=== PATIENT | female | born 1940 | race Caucasian/White ===

== ENCOUNTER 2019-05-07 22:27 | Inpatient (IN) | payer MEDICARE, OTHER ==
[~2019-05-07] VITALS: Ht 162.6 cm; Wt 59.4 kg
--- NOTE | 2019-05-07 22:47 | NUR ---
PT [id number] FROM HOME C/O FEVER/ALTERED MENTAL STATUS/VOMITING AND FREQUENT URINATION. PT AXO4. RESPIRATIONS EVEN AND UNLABORED. PT PUT ON THE APPLICATION PACKAGING CONSULTANT AND PULSE OX. PENDING EVAL FROM ER .
[2019-05-07 23:06] LABS: BASOPHILS % (AUTO) 0.2 % (0.0-2.0); HEMATOCRIT 41 % (33-45); HEMOGLOBIN 13.8 g/dL (11.5-14.8); LYMPHOCYTES # (AUTO) 0.4 /CMM (0.8-4.8); LYMPHOCYTES % (AUTO) 2.7 % (20.0-44.0); MEAN CORPUSCULAR HGB CONC 34 g/dl (31.0-36.0); MEAN CORPUSCULAR VOLUME 98 fL (82-100); MONOCYTES # (AUTO) 0.9 /CMM (0.1-1.30); MONOCYTES % (AUTO) 6.3 % (2.0-12.0); NEUTROPHILS # (AUTO) 12.6 /CMM (1.8-8.9); NEUTROPHILS % (AUTO) 90.8 % (43.0-81.0); PLATELET COUNT (AUTO) 228 /CMM (150-450); RED BLOOD CELL COUNT(AUTO) 4.15 MIL/uL (4.0-5.2); WHITE BLOOD COUNT (AUTO) 13.9 K/uL (4.3-11.0)
[2019-05-07 23:16] LABS: CALCIUM, SERUM 9.3 mg/dL (8.5-10.1); CARBON DIOXIDE 28 mmol/L (21-32); CHLORIDE 98 mmol/L (98-107); CREATININE 0.9 mg/dL (0.6-1.3); GLUCOSE 98 mg/dL (74-106); POTASSIUM 3.8 mmol/L (3.5-5.1); SODIUM SERUM 135 mmol/L (136-145); UREA NITROGEN, BLOOD 22 mg/dL (7-18)
--- NOTE | 2019-05-07 23:18 | NUR ---
PT TAKEN TO CT [facility]IA [facility].
[2019-05-07 23:26] LABS: APPEARANCE,URINE Cloudy (CLEAR); BILIRUBIN,URINE Negative (NEGATIVE); BLOOD, URINE Moderate Ery/uL (NEGATIVE); COLOR,URINE Yellow (YELLOW); KETONES,URINE Negative (NEGATIVE); LEUKOCYTE ESTERASE ,URINE Large (NEGATIVE); NITRITE, URINE Negative (NEGATIVE); PH,URINE 8.5 (5.0-8.0); PROTEIN,URINE 30 mg/dl (NEGATIVE); UGLUCOSE Negative (NEGATIVE); UROBILINOGEN,URINE 0.2 EU/dL (0.2)
[2019-05-07 23:27] LABS: ALANINE AMINOTRANSFERASE 16 U/L (12-78); ALBUMIN 3.2 g/dL (3.4-5.0); ALKALINE PHOSPHATASE 79 U/L (46-116); ASPARTATE AMINOTRANSFERASE 13 U/L (15-37); BILIRUBIN,DIRECT 0.1 mg/dL (0.0-0.2); BILIRUBIN,TOTAL 0.4 mg/dL (0.2-1.0); TOTAL PROTEIN, SERUM 6.9 g/dL (6.4-8.2)
--- NOTE | 2019-05-07 23:31 | NUR ---
PT RETURNED FROM [facility]IA [facility].
[2019-05-07 23:35] LABS: BACTERIA,URINE Rare /HPF (None Seen); SQUAMOUS EPITHELIAL CELL,UR Moderate /HPF (None Seen); WBC,URINE 51-80 /HPF (0-3)
[2019-05-07] MEDS ORDERED: LEVOFLOXACIN 750 MG /D5W 150ML 150 ML IV ONE (23:43)
[2019-05-08] MEDS ORDERED: LEVOFLOXACIN 750 MG /D5W 150ML PIGGYBACK IV ONE
--- NOTE | 2019-05-08 00:03 | NUR ---
TELE BED ASSIGNMENT: 328-2
--- NOTE | 2019-05-08 00:37 | NUR ---
REPORT GIVEN TO PEDRITO TEJEDA FOR IVET.
[2019-05-08 00:46] VITALS: BP 95/55
[2019-05-08 00:48] VITALS: BP 95/55
--- NOTE | 2019-05-08 00:50 | NUR ---
TELE/LONG FILLER CIGAR ROLLER MACHINE NOTES PATIENT ARRIVED ON THE UNIT AT 0046 VIA GURNEY. FEMALE. A/O X 3. FULL CODE. VS UPON ADMISSION: 95/55, P80, RESPIRATIONS 19, TEMP 98.2, O2 SAT 98%. CAREGIVER BILLIE AT BEDSIDE. BILLIE ABLE TO GIVE ME HOME MEDS. NO SIGNS OF RESPIRATORY DISTRESS. DENIES SOB. NO COMPLAINTS OF CHEST PAIN, N/V AT THIS TIME. DENIES PAIN AT THIS TIME. SKIN INTACT. PATIENT ONLY HAS STITCHES FROM A PREVIOUS FALL, IT IS HEALING. SAFETY PRECAUTIONS IMPLEMENTED; CALL LIGHT WITHIN REACH, BED LOW, BED LOCKED, SIDE RAILS UP X2. WILL CONTINUE TO MONITOR.
[2019-05-08] MEDS ORDERED: TEMAZEPAM 15 MG CAPSULE PO PRN (01:00)
[2019-05-08] MEDS ORDERED: ONDANSETRON HCL/PF 4 MG/2 ML VIAL IVP PRN (01:00)
[2019-05-08] MEDS ORDERED: MORPHINE SULFATE INJ 2 MG/ML DISP.SYRIN IV PRN (01:00)
[2019-05-08] MEDS ORDERED: MAG HYDROX/AL HYDROX/SIMETH 30 ML UDC PO PRN (01:00)
[2019-05-08] MEDS ORDERED: HYDROCODONE/APAP 5/325MG 1 EACH TABLET PO PRN (01:00)
[2019-05-08] MEDS ORDERED: ACETAMINOPHEN 325 MG TABLET PO PRN (01:00)
[2019-05-08] MEDS ORDERED: MAGNESIUM HYDROXIDE 30 ML UDC PO PRN (01:00)
[2019-05-08] MEDS ORDERED: DILT240C88 PO (01:48)
[2019-05-08] MEDS ORDERED: METO25TA20 PO (01:50)
[2019-05-08] MEDS ORDERED: ESCI20TA PO (01:51)
[2019-05-08] MEDS ORDERED: TRAV5DRO EACHEYE (01:52)
[2019-05-08] MEDS ORDERED: DIVA500T2 PO (01:52)
[2019-05-08] MEDS ORDERED: CLON0.5T PO (01:54)
[2019-05-08 02:05] VITALS: BP 102/51
[2019-05-08] MEDS: IV NS 0.9% 1,000 ML IV PRN ×2 (02:06→15:39)
--- NOTE | 2019-05-08 02:07 | NUR ---
MS/RN NOTES PER APPLICATIONS INSTRUCTOR, EDSON, HOME MEDS TO BE RECONCILED IN THE AM. WILL PASS ON INFORMATION TO AM NURSE.
--- NOTE | 2019-05-08 06:40 | NUR ---
MS/RN CLOSING NOTES PATIENT IS ASLEEP RESTING COMFORTABLY IN BED. PATIENT ABLE TO MAKE NEEDS KNOWN. PATIENT IS STABLE AT THIS TIME. NO SIGNS OF RESPIRATORY DISTRESS. DENIES SOB. DENIES PAIN OR DISCOMFORT AT THIS TIME. PATIENT IS AFEBRILE. IV SITE: LAC #18G INTACT AND PATENT WITH NS RUNNING AT 75 ML/HR, NO INFILTRATION, NO INFECTION NOTED. SAFETY PRECAUTIONS IMPLEMENTED; CALL LIGHT WITHIN REACH, BED LOWEST POSITION, BED LOCKED, SIDE RAILS UP X2. ALL NEEDS ATTENDED TO AT THIS TIME. WILL ENDORSE TO AM NURSE FOR CONTINUITY OF CARE.
--- NOTE | 2019-05-08 07:26 | NUR ---
RN OPENING NOTE PT WAS RECEIVED IN BED AT LOWEST AND LOCKED POSITION WITH SIDE RAILS UPX2, A/O X3-4 BREATHING EVEN AND UNLABORED ON RA, NO CURRENT COMPLAINTS OR S/S OF ANY DISTRESS OR PAIN NOTED AT THIS TIME. IV IS PATENT AND INTACT WITH IVF INFUSING, PER NIGHT RN MED RECONCILIATION NEEDS TO BE DONE, INFORMED BY RN THAT PT IS NONAMBULATORY AND USED WALKER/WHEELCAHIR TO GET AROUND. SAFETY PRECAUTIONS IN PLACE, CALL LIGHT WITHIN REACH, WILL MONITOR PT ACCORDINGLY
[2019-05-08 07:46] LABS: MAGNESIUM 1.8 mg/dL (1.8-2.4); PHOSPHORUS 3.6 mg/dL (2.5-4.9)
[2019-05-08 08:00] VITALS: BP 107/61
[2019-05-08] MEDS ORDERED: METO-356 PO (08:39)
[2019-05-08] MEDS: DILTIAZEM HCL CD 240 MG PO SCH (13:11)
[2019-05-08] MEDS: ESCITALOPRAM OXALATE (10 MG) 10 MG TABLET PO SCH (13:11)
[2019-05-08] MEDS: METOPROLOL SUCCINATE 25 MG TAB.SR.24H PO SCH (13:12)
[2019-05-08 15:30] VITALS: BP 130/63
--- NOTE | 2019-05-08 18:18 | NUR ---
RN CLOSING NOTE PT IN BED IN LOWEST AND LOCKED POSITION WITH SIDE RAILS UP X2, A/O X2 BREATHING EVEN AND UNLABORED ON RA WITH NO S/S OF ANY DISTRESS OR PAIN NOTED AT THIS TIME, IV IS PATENT AND INTACT WITH IVF RUNNING, SAFETY PRECAUTIONS IN PLACE, CALL LIGHT WITHIN REACH, ALL NEEDS ATTENDED TO THROUGHOUT SHIFT, WILL ENDORSE TO NIGHT RN FOR IVET.
[2019-05-08 20:00] VITALS: BP 148/61
[2019-05-08] MEDS: DIVALPROEX SODIUM 500 MG TABLET.DR PO SCH (21:13)
[2019-05-08] MEDS: LATANOPROST EYE DROP 0.005% 2.5 ML BOTTLE EACHEYE SCH (21:13)
[2019-05-08] MEDS: clonazePAM 0.5 MG TABLET PO SCH (21:15)
--- NOTE | 2019-05-09 07:17 | NUR ---
RN OPENING NOTE PT WAS RECEIVED IN BED AT LOWEST AND LOCKED POSITION WITH SIDE RAILS UPX2, A/O X3-4 BREATHING EVEN AND UNLABORED ON RA, NO CURRENT COMPLAINTS OR S/S OF ANY DISTRESS OR PAIN NOTED AT THIS TIME. IV IS PATENT AND INTACT WITH IVF INFUSING, SAFETY PRECAUTIONS IN PLACE, CALL LIGHT WITHIN REACH, WILL MONITOR PT ACCORDINGLY
[2019-05-09 07:22] LABS: BASOPHILS % (AUTO) 0.3 % (0.0-2.0); EOSINOPHILS % (AUTO) 0.9 % (0.0-6.0); HEMATOCRIT 39 % (33-45); HEMOGLOBIN 13.1 g/dL (11.5-14.8); LYMPHOCYTES # (AUTO) 1.5 /CMM (0.8-4.8); LYMPHOCYTES % (AUTO) 11.7 % (20.0-44.0); MEAN CORPUSCULAR HGB CONC 33 g/dl (31.0-36.0); MEAN CORPUSCULAR VOLUME 98 fL (82-100); MONOCYTES # (AUTO) 1.8 /CMM (0.1-1.30); MONOCYTES % (AUTO) 13.8 % (2.0-12.0); NEUTROPHILS # (AUTO) 9.5 /CMM (1.8-8.9); NEUTROPHILS % (AUTO) 73.3 % (43.0-81.0); PLATELET COUNT (AUTO) 225 /CMM (150-450); RED BLOOD CELL COUNT(AUTO) 3.98 MIL/uL (4.0-5.2); WHITE BLOOD COUNT (AUTO) 12.9 K/uL (4.3-11.0)
[2019-05-09 07:25] LABS: CALCIUM, SERUM 8.7 mg/dL (8.5-10.1); CARBON DIOXIDE 27 mmol/L (21-32); CHLORIDE 103 mmol/L (98-107); CREATININE 0.6 mg/dL (0.6-1.3); GLUCOSE 88 mg/dL (74-106); POTASSIUM 4.7 mmol/L (3.5-5.1); SODIUM SERUM 136 mmol/L (136-145); UREA NITROGEN, BLOOD 11 mg/dL (7-18)
[2019-05-09 08:00] VITALS: BP 137/68
[2019-05-09] MEDS: ESCITALOPRAM OXALATE (10 MG) 10 MG TABLET PO SCH (08:18)
[2019-05-09] MEDS: DILTIAZEM HCL CD 240 MG PO SCH (08:19)
[2019-05-09] MEDS: METOPROLOL SUCCINATE 25 MG TAB.SR.24H PO SCH (08:19)
[2019-05-09 16:00] VITALS: BP 135/63
--- NOTE | 2019-05-09 18:41 | NUR ---
RN CLOSING NOTE PT IN BED IN LOWEST AND LOCKED POSITION WITH SIDE RAILS UP X2, A/O X2 BREATHING EVEN AND UNLABORED ON RA WITH NO S/S OF ANY DISTRESS OR PAIN, IV IS PATENT AND INTACT, SAFETY PRECAUTIONS IN PLACE, CALL LIGHT WITHIN REACH, ALL NEEDS ATTENDED TO THROUGHOUT SHIFT, WILL ENDORSE TO NIGHT RN FOR IVET.
[2019-05-09 20:00] VITALS: BP 137/72
[2019-05-09] MEDS: LEVOFLOXACIN 250 MG /D5W 50 ML 250 MG in PREMIX 1 EA IV SCH (21:21)
[2019-05-09] MEDS: DIVALPROEX SODIUM 500 MG TABLET.DR PO SCH (21:22)
[2019-05-09] MEDS: clonazePAM 0.5 MG TABLET PO SCH (21:22)
[2019-05-09] MEDS: LATANOPROST EYE DROP 0.005% 2.5 ML BOTTLE EACHEYE SCH (21:22)
[2019-05-09] MEDS: IV NS 0.9% 1,000 ML IV PRN (22:32)
[2019-05-10 06:22] LABS: CALCIUM, SERUM 9.1 mg/dL (8.5-10.1); CARBON DIOXIDE 26 mmol/L (21-32); CHLORIDE 102 mmol/L (98-107); CREATININE 0.7 mg/dL (0.6-1.3); GLUCOSE 92 mg/dL (74-106); MAGNESIUM 1.9 mg/dL (1.8-2.4); SODIUM SERUM 135 mmol/L (136-145); UREA NITROGEN, BLOOD 11 mg/dL (7-18)
[2019-05-10 06:32] LABS: THYROID STIMULATING HORMONE 2.227 uIU/mL (0.358-3.74)
[2019-05-10 08:00] VITALS: BP 134/76
--- NOTE | 2019-05-10 08:00 | NUR ---
MS RN OPENING NOTES Received Patient resting and asleep in bed. A/O x 2-3 with episodes of forgetfulness. VS stable with no acute distress. Breathing even and unlabored on room air with no respiratory distress. No signs and symptoms of pain. 18g PIV on LAC clean, dry, intact and flushing well with NS running at 75ml/hr. Safety precautions in place. Bed locked and set to lowest position with side rails x 2 up. Will continue to monitor.
[2019-05-10] MEDS: DILTIAZEM HCL CD 240 MG PO SCH (08:54)
[2019-05-10] MEDS: ESCITALOPRAM OXALATE (10 MG) 10 MG TABLET PO SCH (08:54)
[2019-05-10] MEDS: METOPROLOL SUCCINATE 25 MG TAB.SR.24H PO SCH (08:54)
[2019-05-10 16:00] VITALS: BP 143/73
--- NOTE | 2019-05-10 19:00 | NUR ---
RN medsurg opening notes Received Pt from morning nurse. Pt is resting in bed comfortably. Pt is alert and oriented x3. Respiration is normal. No SOB. No nausea or vomiting. Pt denies any pain or discomfort. IV sites at LAC #18 is clean, intact, patent and infusing well NS at 75ml/hr. Safety precautions is maintained. Seizure precautions is maintained. Instructed to call for assistance. Bed at low position, brakes locked, side rails up X2 and call light is within reach. Will continue to monitor and assists all needs.
--- NOTE | 2019-05-10 19:15 | NUR ---
MS RN CLOSING NOTES Patient resting and watching TV in bed. A/O x 2-3 with episodes of forgetfulness. VS stable with no acute distress. Breathing even and unlabored on room air with no respiratory distress. No signs and symptoms of pain. 18g PIV on LAC clean, dry, intact and flushing well with NS running at 75ml/hr. Safety precautions in place. Bed locked and set to lowest position with side rails x 2 up. Call light within reach. All needs rendered at this time. Will endorse plan of care to oncoming shift.
[2019-05-10 20:00] VITALS: BP 141/69
[2019-05-10] MEDS: DIVALPROEX SODIUM 500 MG TABLET.DR PO SCH (21:08)
[2019-05-10] MEDS: LEVOFLOXACIN 250 MG /D5W 50 ML 250 MG in PREMIX 1 EA IV SCH (21:08)
[2019-05-10] MEDS: LATANOPROST EYE DROP 0.005% 2.5 ML BOTTLE EACHEYE SCH (21:08)
[2019-05-10] MEDS: clonazePAM 0.5 MG TABLET PO SCH (21:08)
[2019-05-11] MEDS: IV NS 0.9% 1,000 ML IV PRN (02:33)
[2019-05-11 06:41] LABS: BASOPHILS % (AUTO) 0.6 % (0.0-2.0); EOSINOPHILS % (AUTO) 2.7 % (0.0-6.0); HEMATOCRIT 40 % (33-45); HEMOGLOBIN 13.5 g/dL (11.5-14.8); LYMPHOCYTES # (AUTO) 1.6 /CMM (0.8-4.8); LYMPHOCYTES % (AUTO) 23.3 % (20.0-44.0); MEAN CORPUSCULAR HGB CONC 34 g/dl (31.0-36.0); MEAN CORPUSCULAR VOLUME 98 fL (82-100); MONOCYTES % (AUTO) 14.9 % (2.0-12.0); NEUTROPHILS % (AUTO) 58.5 % (43.0-81.0); PLATELET COUNT (AUTO) 282 /CMM (150-450); WHITE BLOOD COUNT (AUTO) 6.8 K/uL (4.3-11.0)
--- NOTE | 2019-05-11 06:53 | NUR ---
RN medsurg closing notes Pt is alert and oriented X2-3, easily forgetful. Pt is sleeping in bed comfortably. Awaken easily. No SOB. No nausea or vomiting. No S/S of distress noted. IV sites at L AC is clean, intact, and patent. Routine meds were given as ordered. All needs met and attended. Kept Pt warm and comfortable. Safety precautions is maintained. Seizure precautions is maintained. Instructed to call. Bed at low position, brakes locked, side rails upX2 and call light is within reach. Will endorse to morning nurse for IVET
[2019-05-11 07:07] LABS: CALCIUM, SERUM 8.9 mg/dL (8.5-10.1); CARBON DIOXIDE 26 mmol/L (21-32); CHLORIDE 103 mmol/L (98-107); CREATININE 0.7 mg/dL (0.6-1.3); GLUCOSE 86 mg/dL (74-106); MAGNESIUM 1.8 mg/dL (1.8-2.4); PHOSPHORUS 3.7 mg/dL (2.5-4.9); SODIUM SERUM 137 mmol/L (136-145); UREA NITROGEN, BLOOD 14 mg/dL (7-18)
--- NOTE | 2019-05-11 07:50 | NUR ---
m/s repair service clerk: notes called epic at 0740 and was on hold for a couple of times and finally cager operator crab picker the call and maxime espinoza ([facility]) was paged re: critical labs. Addendum: 05/11/19 at 0752 by LUIS ANDREWSN above charting, karen pt
[2019-05-11 08:00] VITALS: BP 133/80
--- NOTE | 2019-05-11 09:00 | NUR ---
m/s dietary services manager: md visit seen and examined by dr. hwang at this time. pt for discharge home today per md. awaiting for order. pt aware.
[2019-05-11] MEDS: ESCITALOPRAM OXALATE (10 MG) 10 MG TABLET PO SCH (09:20)
[2019-05-11 09:21] VITALS: BP 133/80
[2019-05-11] MEDS: METOPROLOL SUCCINATE 25 MG TAB.SR.24H PO SCH (09:21)
[2019-05-11] MEDS: DILTIAZEM HCL CD 240 MG PO SCH (09:21)
--- NOTE | 2019-05-11 10:00 | NUR ---
m/s enrobing machine operator: notes lyle (dpoa) here and will come back to bring clothes to bring her home.
[2019-05-11] MEDS ORDERED: Levofloxacin (250MG) PO (10:41)
--- NOTE | 2019-05-11 11:00 | NUR ---
m/s cement mason maintenance: notes received order to discharge pt home. order acknowledged.
--- NOTE | 2019-05-11 11:15 | NUR ---
m/s agile scrum coach: d'c instructions discharge instructions given to lyle (leigh) and verbalized understanding. h/l removed with tip intact. prescription for levaquin 250mg po daily x 4 days called in to [facility], spoke to daphne (pharmacist). all belongings returned to pt. all meds reviewed with lyle (leigh).
--- NOTE | 2019-05-11 11:25 | NUR ---
m/s ending machine operator: discharged discharged home in stable condition with all d'c papers and valuables.
[2019-05-11] MEDS ORDERED: LEVOFLOXACIN (250MG) 250 MG TABLET PO SCH (21:00)
== END 2019-05-11 13:00 | disposition home or self-care (01) | DRG 689 ==
LOC: ER 22:36 → TELE 05-08 00:35 → MED 05-08 01:52
PROVIDERS: ADMIT Internal Medicine; ATTEND Internal Medicine
DX: N39.0 Urinary tract infection, site not specified (principal); G93.41 Metabolic encephalopathy; G91.9 Hydrocephalus, unspecified; K21.9 Gastro-esophageal reflux disease without esophagitis; E78.5 Hyperlipidemia, unspecified; H40.9 Unspecified glaucoma; G20 Parkinson's disease; Z98.2 Presence of cerebrospinal fluid drainage device; Z86.73 Personal history of transient ischemic attack (TIA), and cerebral infarction without residual deficits; I10 Essential (primary) hypertension; F32.9 Major depressive disorder, single episode, unspecified; Z88.1 Allergy status to other antibiotic agents; Z88.0 Allergy status to penicillin; Z79.899 Other long term (current) drug therapy; Z98.890 Other specified postprocedural states; E87.8 Other disorders of electrolyte and fluid balance, not elsewhere classified; B96.20 Unspecified Escherichia coli [E. coli] as the cause of diseases classified elsewhere
CPT/HCPCS: 36415; 70450-TC; 71045-TC; 80048-TC; 80061-TC; 80076-TC; 81000-TC; 83605-TC; 83735-TC; 84100-TC; 84443-TC; 84484-TC; 85025-TC; 85730-TC; 87040-TC; 87081-TC; 87086-TC; 87186-TC; 97116-TC; 97530-TC; A4216; G0378; J1956; J7030